=== PATIENT | female | born 1965 | race Caucasian/White ===

== ENCOUNTER 2018-04-20 20:35 | Emergency (ER) | payer MEDICARE ==
[2018-04-20] MEDS ORDERED: Acetaminophen 500 MG TAB ONE (20:52)
== END 2018-04-20 22:50 | disposition home or self-care (01) ==
LOC: ERS 20:35
DX: R51 Headache (principal); I10 Essential (primary) hypertension; F20.0 Paranoid schizophrenia; F17.210 Nicotine dependence, cigarettes, uncomplicated; Z79.899 Other long term (current) drug therapy
CPT/HCPCS: 99284